=== PATIENT | male | born 1995 | race Caucasian/White ===

== ENCOUNTER 2018-01-20 17:46 | Emergency (ER) | payer SELFPAY ==
[~2018-01-20] VITALS: Ht 175.3 cm; Wt 72.7 kg
[2018-01-20 18:27] VITALS: BP 145/74
== END 2018-01-20 18:31 | disposition home or self-care (01) ==
LOC: ER 17:47
DX: Z02.89 Encounter for other administrative examinations (principal)
CPT/HCPCS: 99281